=== PATIENT | female | born 1975 | race Two or more races ===

== ENCOUNTER 2019-06-05 10:03 | Outpatient (CLI) | payer OTHER ==
[2019-06-05 10:52] LABS: EOSINOPHILS # (AUTO) 0.1 K/uL (0.0-0.7); HEMATOCRIT 39.9 % (31.2-41.9); HEMOGLOBIN 13.5 g/dL (10.9-14.3); LYMPHOCYTES # (AUTO) 2.7 K/uL (20.0-40.0); LYMPHOCYTES % (AUTO) 38.6 % (20.5-51.5); MEAN CORPUSCULAR HEMOGLOBIN 29.8 uug (24.7-32.8); MEAN CORPUSCULAR HGB CONC 34 g/dL (32.3-35.6); MONOCYTES # (AUTO) 0.5 K/uL (2.0-10.0); MONOCYTES % (AUTO) 7.6 % (0.0-11.0); NEUTROPHILS # (AUTO) 3.7 K/uL (1.8-8.9); NEUTROPHILS % (AUTO) 52.8 % (38.5-71.5); PLATELET COUNT (AUTO) 360 K/uL (179-408); RED BLOOD CELL COUNT(AUTO) 4.54 MIL/uL (3.63-4.92)
[2019-06-05 10:59] LABS: *BILIRUBIN,URIN NEGATIVE (NEGATIVE); *BLOOD, URINE NEGATIVE (NEGATIVE); *CLARITY,URINE CLEAR (CLEAR); *COLOR,URINE YELLOW (YELLOW); *KETONES,URINE NEGATIVE (NEGATIVE); *UROBILINOGEN,URINE 0.2 E.U./dl (NORMAL); LEUKOCYTE ESTERASE ,URINE NEGATIVE (NEGATIVE); NITRITE, URINE NEGATIVE (NEGATIVE); UGLUCOSE NEGATIVE (NEGATIVE)
[2019-06-05 11:04] LABS: CARBON DIOXIDE 29 mmol/L (21-32); CHLORIDE 102 mmol/L (98-107); CREATININE 0.5 mg/dL (0.6-1.3); GLUCOSE 91 mg/dL (74-106); POTASSIUM 3.7 mmol/L (3.5-5.1); UREA NITROGEN, BLOOD 12 mg/dL (7-18)
[2019-06-05 11:10] LABS: ALANINE AMINOTRANSFERASE 47 U/L (14-59); ALKALINE PHOSPHATASE 124 U/L (50-136); ASPARTATE AMINOTRANSFERASE 27 U/L (15-37); BILIRUBIN,TOTAL 0.4 mg/dL (0.2-1.0)
== END 2019-06-05 23:59 | disposition home or self-care (01) ==
LOC: LAB 10:03
PROVIDERS: ATTEND Orthopaedic Surgery
DX: Z01.818 Encounter for other preprocedural examination (principal); M75.101 Unspecified rotator cuff tear or rupture of right shoulder, not specified as traumatic
CPT/HCPCS: 36415; 85025; 85730; A4663

== ENCOUNTER 2019-06-08 06:32 | Day surgery (SDC) | payer OTHER ==
[2019-06-08] MEDS ORDERED: LIDOCAINE HCL-MPF 1% 5 ML VIAL IJ ONE (06:33)
[2019-06-08] MEDS ORDERED: ONDANSETRON 4 MG/2 ML VIAL IV ONE (06:33)
[2019-06-08] MEDS ORDERED: SEVOFLURANE 250 ML BOTTLE IH ONE (06:33)
[2019-06-08] MEDS ORDERED: CEFAZOLIN 1 G VIAL IM ONE (06:33)
[2019-06-08] MEDS ORDERED: ROCURONIUM BROMIDE 50 MG/5 ML VIAL IV ONE (06:33)
[2019-06-08] MEDS ORDERED: IV NORMAL SALINE 1000 ML BAG IV ONE (06:33)
[2019-06-08] MEDS ORDERED: METOCLOPRAMIDE HCL 10 MG/2 ML VIAL IV ONE (06:33)
[2019-06-08] MEDS ORDERED: PROPOFOL 200 MG/20 ML BOTTLE IV ONE (06:33)
[2019-06-08 07:00] LABS: *URINE HCG, QUAL NEGATIVE (NEGATIVE)
[2019-06-08] MEDS ORDERED: POLYMYXIN B SULFATE 500,000 UNITS, BACITRACIN 50,000 UNITS, NORMAL SALINE 20 ML MC ONE ×3 (07:15)
[2019-06-08] MEDS ORDERED: MIDAZOLAM HCL 2 MG/2 ML VIAL ONE (07:23)
[2019-06-08] MEDS ORDERED: FENTANYL CITRATE 250 MCG/5 ML AMPUL ONE (07:23)
[2019-06-08] MEDS ORDERED: ROCURONIUM BROMIDE 50 MG/5 ML VIAL ONE (07:25)
[2019-06-08] MEDS ORDERED: MEPERIDINE 25 MG/1 ML DISP.SYRIN ONE (07:25)
[2019-06-08] MEDS ORDERED: BUPIVACAINE PF 0.5% 30 ML VIAL ONE (07:29)
[2019-06-08] MEDS ORDERED: SEVOFLURANE 250 ML BOTTLE ONE (07:35)
[2019-06-08] MEDS ORDERED: FENTANYL CITRATE 100 MCG/2 ML AMPUL ONE (10:29)
[2019-06-08] MEDS ORDERED: ONDANSETRON 4 MG/2 ML VIAL ONE (10:30)
[2019-06-08] MEDS ORDERED: HYDROCODONE/APAP 5-325MG TABLET ONE (11:03)
== END 2019-06-08 12:20 | disposition home or self-care (01) ==
LOC: DS 06:32
PROVIDERS: ATTEND Orthopaedic Surgery
DX: M75.101 Unspecified rotator cuff tear or rupture of right shoulder, not specified as traumatic (principal); M19.011 Primary osteoarthritis, right shoulder; M75.41 Impingement syndrome of right shoulder; I10 Essential (primary) hypertension; M19.90 Unspecified osteoarthritis, unspecified site; F15.90 Other stimulant use, unspecified, uncomplicated; Z98.51 Tubal ligation status; Z98.890 Other specified postprocedural states; Z79.899 Other long term (current) drug therapy
CPT/HCPCS: 23120; 23420; 84703; J0690; J2175; J2250; J2405 ×2; J2765; J3010 ×2; J3490 ×5; J7120; A4565; A4649; J7030